=== PATIENT | female | born 1995 | race Caucasian/White ===

== ENCOUNTER → 2016-03-07 | Outpatient (CLI) | payer OTHER ==
[~2016-03-07] VITALS: Ht 165.1 cm; Wt 86.8 kg
[~2016-03-07] MED LIST: BREAST PUMP MC; ENDOMETRIN100 MG VG; PRENATABS RX T1 EACH PO; PRENATAL TABLE1 EACH PO; PROAIR HFA8.5 GM IH
[2016-03-07 15:19] VITALS: BP 142/66
== END | disposition home or self-care (01) ==
LOC: IVINF 02-24 13:30
DX: O36.0990 Maternal care for other rhesus isoimmunization, unspecified trimester, not applicable or unspecified (principal); Z3A.00 Weeks of gestation of pregnancy not specified
CPT/HCPCS: 96372

== ENCOUNTER 2016-05-14 22:00 | Inpatient (IN) | payer OTHER ==
[~2016-05-14] VITALS: Ht 165.1 cm; Wt 89.3 kg
[2016-05-14 22:15] VITALS: BP 136/75
[2016-05-14 22:54] VITALS: BP 131/62
[2016-05-14 23:19] LABS: EOSINOPHIL (%) 0.4 % (0-5); EOSINOPHIL COUNT 0.1 K/uL (0-0.3); HEMATOCRIT 34.9 % (36.0-46.0); IMMATURE GRANULOCYTE (%) 1.2 % (0.0-0.7); IMMATURE GRANULOCYTE COUNT 0.2 K/uL; INSTRUMENT ABS NEUTROPHIL CT 13.1 K/uL; MCH 26.4 PG (29.0-34.0); MCHC 32.7 G/DL (30.0-36.0); MCV 80.8 FL (83-99); MEAN PLAT.VOLUME 10.3 uM^3 (9.5-12.4); MONOCYTE (%) 5.5 % (3-12); MONOCYTE COUNT 0.9 K/uL (0-0.8); NEUTROPHIL (%) 80.4 % (45-76); NEUTROPHIL COUNT 13.1 K/uL (1.8-6.4); PLATELET COUNT 330 K/uL (156-360); RBC DIS.WIDTH-CV 14.2 % (11.8-14.6); RBC DIS.WIDTH-SD 41.8 % (39-53); RED BLOOD COUNT 4.32 M/uL (3.80-5.20); WHITE BLOOD COUNT 16.2 K/uL (4.1-10.2)
[2016-05-15] VITALS (8 sets, daily range): BP systolic 124–142; BP diastolic 57–77
[2016-05-16 07:39] VITALS: BP 131/76
[2016-05-16 07:43] LABS: BASOPHIL COUNT 0.1 K/uL (0-0.1); EOSINOPHIL (%) 1.5 % (0-5); EOSINOPHIL COUNT 0.3 K/uL (0-0.3); HEMATOCRIT 31.3 % (36.0-46.0); IMMATURE GRANULOCYTE (%) 1.3 % (0.0-0.7); IMMATURE GRANULOCYTE COUNT 0.2 K/uL; INSTRUMENT ABS NEUTROPHIL CT 10.8 K/uL; LYMPHOCYTE COUNT 4.4 K/uL (1.0-2.8); MCH 26.7 PG (29.0-34.0); MCHC 32.3 G/DL (30.0-36.0); MCV 82.8 FL (83-99); MEAN PLAT.VOLUME 10.4 uM^3 (9.5-12.4); MONOCYTE (%) 6.6 % (3-12); MONOCYTE COUNT 1.1 K/uL (0-0.8); NEUTROPHIL (%) 63.9 % (45-76); NEUTROPHIL COUNT 10.8 K/uL (1.8-6.4); PLATELET COUNT 346 K/uL (156-360); RBC DIS.WIDTH-CV 14.8 % (11.8-14.6); RBC DIS.WIDTH-SD 44.1 % (39-53); RED BLOOD COUNT 3.78 M/uL (3.80-5.20); WHITE BLOOD COUNT 16.9 K/uL (4.1-10.2)
== END 2016-05-16 14:39 | disposition home health service (06) | DRG 775 ==
LOC: LDRP-OP → 2WEST 22:01 → LDRP-OP 06-09 15:40
PROVIDERS: Advanced Practice Midwife
DX: O70.1 Second degree perineal laceration during delivery (principal); O48.0 Post-term pregnancy; O26.893 Other specified pregnancy related conditions, third trimester; Z67.11 Type A blood, Rh negative; O99.52 Diseases of the respiratory system complicating childbirth; J45.909 Unspecified asthma, uncomplicated; O99.214 Obesity complicating childbirth; E66.9 Obesity, unspecified; Z3A.40 40 weeks gestation of pregnancy; Z37.0 Single live birth; Z88.0 Allergy status to penicillin
CPT/HCPCS: 83030; 85025; 86850; 86870; 86900; 86901; G0378; J1050; J2790